=== PATIENT | female | born 1995 | race Caucasian/White ===

== ENCOUNTER 2023-03-08 15:56 | Emergency (ER) | payer OTHER, SELFPAY ==
[2023-03-08 15:57] VITALS: BP 114/73; PULSE 78; RESP 18; TEMP 36.4; O2SAT 98; BMI 23.4
--- NOTE | 2023-03-08 16:51 | ED.GENADULT ---
HPI - General Adult General Date Seen: 03/08/23 Chief complaint: Laceration/Wound Stated complaint: R hand knuckle laceration Time Seen by Provider: 03/08/23 16:29 History of Present Illness HPI narrative: This is a pleasant 27-year-old female with a history of depression, previous pneumonia, up-to-date on tetanus, who presents to the ER today for evaluation of a accidental laceration affecting the dorsum of the PIP joint of her right hand index finger. Laceration occurred just prior to arrival today. She was doing the dishes when a glass broke and she cut herself on the back of that finger. He was initially bleeding briskly but nonpulsatile. She was able to control the bleeding by direct pressure. She has no associated numbness or tingling in that finger. Normal flexion and extension of each joint to the finger. She does not think there is a foreign body present. Related Data Previous Rx's Medication Instructions Recorded lidocaine HCl 2 % mucosal solution 5 ml mucous membrane QID PRN pain 08/02/22 (Lidocaine Viscous) #100 mL Allergies Allergy/AdvReac Type Severity Reaction Status Date / Time No Known Allergies Allergy Unknown Verified 08/02/22 12:26 [facility] Family History (Updated 05/08/22 @ 11:57 by Kanika Alanis) Mother Bipolar disorder Hypothyroidism Brother Depression Family/Other Depression Social History Smoking Status: Never smoker Do you use any of these nicotine containing products: None Second hand tobacco smoke exposure: Yes How often do you have a drink containing alcohol: never How often do you have six or more drinks on one occasion: Never AUDIT-C Alcohol total score: 0 service: No Exam Narrative: Exam Narrative: Constitutional: Appears well-developed and well-nourished. Alert. Conversant. Non toxic. HENT: Head: Atraumatic. Nose: Nose normal. Mouth/Throat: Oral mucosa is clear and moist. no trismus. Eyes: Conjunctivae normal. EOM normal. Pupils equal, round, and reactive to light. No scleral icterus. Neck: Normal range of motion. Neck supple. No tracheal deviation present. Cardiovascular: Normal rate, regular rhythm. Symmetric radial artery pulses Pulmonary/Chest: Effort normal. No stridor. No respiratory distress. Musculoskeletal: RUE: Normal range of motion in her shoulder, elbow, wrist, and hand. She has a 1 cm laceration running diagonally over the dorsum of the PIP joint of her right hand, 2nd digit (index finger). The wound edge does gape about a mm or 2 when she flexes that PIP joint. Intact flexion and extensor tendon function of the D IP, PIP, MCP. Intact radial and ulnar digital nerve sensory function. No active bleeding. No deformity LUE: Normal range of motion. No tenderness. No deformity RLE: Normal range of motion. No edema. No tenderness. No deformity LLE: Normal range of motion. No edema. No tenderness. No deformity Neurological: Alert and oriented to person, place, and time. Normal strength. CN II-VII intact. No sensory deficit. GCS eye subscore is 4. GCS verbal subscore is 5. GCS motor subscore is 6. Normal coordination Skin: Skin is warm and dry. No rash noted. No pallor. Normal capillary refill. Psychiatric: Normal mood. Normal affect. Const: Vital Signs, click to edit/add: Vital Signs - 24 hr 03/08/23 15:57 Temperature 97.5 F L Pulse Rate [Pulse Oximeter] 78 Respiratory Rate 18 Blood Pressure [Ri t Upper Arm] 114/73 Pulse Oximetry 98 Oxygen Delivery Me thod Room Air Course Vital Signs Vital signs: Initial Vital Signs Temperature 97.5 F L 03/08/23 15:57 Temperature Source Temporal Artery Scan 03/08/23 15:57 Pulse Rate 78 03/08/23 15:57 Pulse Rhythm Regular 03/08/23 15:57 Respiratory Rate 18 03/08/23 15:57 Blood Pressure 114/73 03/08/23 15:57 Blood Pressure Mean 86 03/08/23 15:57 Blood Pressure Position Sitting 03/08/23 15:57 Pulse Oximetry 98 03/08/23 15:57 Oxygen Delivery Method Room Air 03/08/23 15:57 Vital Signs Temperature 97.5 F L 03/08/23 15:57 Pulse Rate 78 03/08/23 15:57 Respiratory Rate 18 03/08/23 15:57 Blood Pressure 114/73 03/08/23 15:57 Pulse Oximetry 98 03/08/23 15:57 Oxygen Delivery Method Room Air 03/08/23 15:57 Temperature 97.5 F L 03/08/23 15:57 Pulse Rate 78 03/08/23 15:57 Respiratory Rate 18 03/08/23 15:57 Blood Pressure 114/73 03/08/23 15:57 Pulse Oximetry 98 03/08/23 15:57 Oxygen Delivery Method Room Air 03/08/23 15:57 Medications Administered Medications: Discontinued Medications Generic Name Dose Route Start Last Admin Trade Name Meg PRN Reason Stop Dose Admin Bupivacaine HCl 30 ml 03/08/23 16:50 03/08/23 17:16 Bupivacaine 0.25% 30 Ml INJECTION 03/08/23 16:51 30 ml ONCE ONE Administration Medical Decision Making MDM Narrative Medical decision making narrative: Findings and exam are consistent with an uncomplicated laceration to the dorsum of her right hand, index finger, PIP joint which was repaired as noted above. There is no evidence at this time to suggest any associated fracture or foreign body. Fortunately, no evidence for any extensor tendon or joint space involvement. There is no evidence to suggest tendon or arterial injury and patient is neurologically in tact. The patient is to follow up for suture removal as instructed in 7-10 days. Indications to seek urgent reevaluation and signs of infection (including but not limited to increasing pain, redness, swelling, fevers, and drainage) were reviewed. Tetanus is up-to-date. This is a clean and non-contaminated wound in which prophylactic antibiotics are not indicated. An understanding of the discharge instructions and need for follow up were verbally confirmed. Discharge Plan Discharge Clinical Impression: Finger laceration Patient Disposition: Home, Self-Care Condition: Stable Instructions: Finger Laceration (ED) Additional Instructions: As we discussed, please change the dressing and clean the wound gently once per day starting Wednesday. Monitor for any signs of infection such as redness, swelling, pus draining from the wound, fever, and if you have any concerns please see your doctor or return to the ER to be rechecked immediately. Please follow-up with your doctor or the Urgent Care to have his sutures removed in 7-10 days. Please keep your finger clean and dry. Keep the dressings on every day. Do not submerge your hand in water or do dishes until after your sutures have been removed. Prescriptions: No Action lidocaine HCl [Lidocaine Viscous] 2 % solution 5 ml mucous membrane QID PRN (Reason: pain) Qty: 100 0RF Follow Up/Referrals: Provider,Not a Local [Primary Care Provider] - Stand Alone Forms: MyHealth Info Instructions Procedures Laceration Right hand, index finger, dorsal PIP joint laceration: Verification/time out: correct patient and correct site Site: hand (Right hand, index finger, dorsal PIP joint) Side (If applicable): right Size (cm): 1 Description: linear Depth: simple, single layer Local Anesthetic: bupivacaine 0.25% Amount of anesthesia used (mL): 3 (Digital block using a dorsal approach from the radial and ulnar sides. Good anesthesia achieved.) Pre-repair: wound explored and deep structures intact Skin layer closed with: nylon Size (cm): 5-0 Number of sutures: 3
[2023-03-08] MEDS: BUPIVACAINE 0.25% 30 ML INJECTION (17:16)
== END 2023-03-08 17:35 | disposition home or self-care (01) ==
PROVIDERS: Emergency Provider Emergency Medicine
DX: S61.210A Laceration without foreign body of right index finger without damage to nail, initial encounter (principal)
CPT/HCPCS: 12001; 99283; J0665